=== PATIENT | male | born 1960 | race Caucasian/White ===

== ENCOUNTER → 2021-02-21 | Outpatient (CLI) | payer OTHER ==
--- NOTE | 2021-02-21 09:43 | MR ---
MRI CERVICAL SPINE: CLINICAL HISTORY: Neck pain into left upper extremity. Other cervical disc displacement. TECHNIQUE: Multiplanar, multisequence imaging of the cervical spine is performed without IV contrast. COMPARISON: None. FINDINGS: Sagittal images of the cervical spine show the craniocervical junction to appear within nor mal limits. The cervical and upper thoracic spinal cord is normal in course, caliber, and signal. Sl ight grade 1 retrolisthesis C5 on C6. The vertebral body heights are normal. Mild disc space narrowi ng C3-C4 and C5-C6 levels. Moderate disc space narrowing C6-C7 level. Jhfr-tb-[id number] multilevel ant erior spurring greatest at C5-C6 and C6-C7 levels. The bone marrow signal intensity is within normal limits. Axial images show C2-C3 level to appear within normal limits. Axial images at C3-C4 level showed broad based posterior disc protrusion with uncovertebral facet deg enerative changes, there is effacement of the anterior thecal sac, there is severe left-sided neural foraminal narrowing, there is mild to moderate right-sided neural foraminal narrowing. Axial images at C4-C5 level showed broad based posterior disc protrusion effacing anterior thecal sac and causing mild to moderate bilateral neural foraminal narrowing as there are uncovertebral facet d egenerative changes bilaterally also present. Axial images at the C5-C6 level showed broad based right paracentral disc protrusion and uncovertebra l facet degenerative changes bilaterally, there is moderate left and mild right-sided neural foramina l narrowing. Axial images at C6-C7 level show broad-based right paracentral disc protrusion effacing anterior thec al sac, there is mild left and moderate right-sided neural foraminal narrowing. Axial images at C7-T1 level appear within normal limits. There is heterogeneity in the thyroid, small right-sided thyroid nodules suspected axial image 21. Co nsider thyroid ultrasound follow-up to further evaluate. IMPRESSION: Multilevel degenerative changes in the cervical spine as detailed above.
== END | disposition home or self-care (01) ==
LOC: RADMRIMAIN 07:23
PROVIDERS: ATTEND Family Medicine Addiction Medicine
DX: M50.223 Other cervical disc displacement at C6-C7 level (principal); M50.323 Other cervical disc degeneration at C6-C7 level; M47.812 Spondylosis without myelopathy or radiculopathy, cervical region; M43.12 Spondylolisthesis, cervical region; M99.71 Connective tissue and disc stenosis of intervertebral foramina of cervical region
CPT/HCPCS: 72141

== ENCOUNTER → 2021-05-29 | Outpatient (CLI) | payer OTHER ==
[2021-05-29 15:01] LABS: Basophils # (A) 0.05 X 10*3/uL (0.00-0.10); Basophils % (A) 0.6 %; Eosinophils # (A) 0.57 X 10*3/uL (0.04-0.35); HCT 49.6 % (39.6-50.0); HGB 15.2 g/dL (13.0-17.0); Immature Grans, Automated 0.2 %; Lymphocytes # (A) 2.35 X 10*3/uL (0.90-5.00); Lymphocytes % (A) 28.8 %; MCH 27.1 pg (27.0-32.0); MCHC 30.6 g/dL (32.0-37.0); MCV 88.4 fL (80.0-97.0); Mean Platelet Volume 9.9 fL (9.5-12.2); Monocytes # (A) 0.76 X 10*3/uL (0.20-1.00); Monocytes % (A) 9.3 %; NRBC Per 100 WBC 0 /100 WBCS (0.0-0.0); Neutrophils # (A) 4.41 X 10*3/uL (1.80-7.70); Neutrophils % (A) 54.1 %; Platelet Count 243 X 10*3/uL (140-440); RBC 5.61 X 10*6/uL (4.40-5.60); RDW 13.8 % (11.5-14.5); WBC 8.16 X 10*3/uL (4.50-10.00)
[2021-05-29 15:25] LABS: ALT 23 U/L (10-49); AST 28 U/L (14-35); Albumin 4.4 g/dL (3.8-4.9); Alkaline Phosphatase 131 U/L (41-126); BUN/Creat Ratio 20.33 Ratio (12.00-20.00); Calcium 9.4 mg/dL (8.7-10.3); Chloride 105 mmol/L (96-109); Chol/HDL Ratio 3.76 Ratio; Globulin 2.6 g/dL (1.6-3.3); Glucose 96 mg/dL (70-110); LDL Cholesterol,Calculated 103.9 mg/dL (0.0-131.0); Potassium 5.4 mmol/L (3.5-5.5); Sodium 144 mmol/L (135-145); Total Protein 7.1 g/dL (6.2-8.2); VLDL Calculation 15.82 mg/dL (5.00-40.00)
[2021-05-29 16:36] LABS: Appearance,Urine Clear (Clear); Bilirubin,Urine Negative (Negative); Blood,Urine Negative (Negative); Color,Urine Dark Yellow (Yellow); Ketones,Urine Negative (Negative); Leukocyte Esterase,Urine Negative (Negative); Nitrite,Urine Negative (Negative); Protein,Urine Negative (Negative); Specific Gravity,Urine 1.026 (1.001-1.030)
== END | disposition home or self-care (01) ==
LOC: LABWHC1 08:57
PROVIDERS: ATTEND Internal Medicine
DX: Z00.00 Encounter for general adult medical examination without abnormal findings (principal)
CPT/HCPCS: 36415; 80053; 80061; 81003; 84153; 85025

== ENCOUNTER → 2023-01-14 | Outpatient (CLI) | payer OTHER ==
--- NOTE | 2023-01-14 12:27 | XR ---
EXAMINATION TYPE: XR cervical spine comp DATE OF EXAM: 01/14/2023 11:36 AM CLINICAL INDICATION:Male, 62 years old with history of M48.061,M51.25 SPINE, LUMBAR...ATTN: C3-4,C4-5 ,C5-6; [facility] COMPARISON: 02/21/2021 MRI TECHNIQUE: The cervical spine was imaged in frontal, lateral, odontoid and bilateral oblique. FINDINGS: The osseous structures show normal alignment without evidence of an acute fracture. There are osteoph ytes noted throughout the cervical spine on the anterior and lateral aspects of the vertebral bodies. The intervertebral disk spaces are narrowed at multiple levels. Pedicles are intact. Soft tissues a re within normal limits. The odontoid appears intact. Moderate neural femoral stenosis bilateral C6-C 7 IMPRESSION: 1. No fracture or dislocation. 2. Mild degenerative disc disease changes of the cervical spine. Neural femoral stenosis worse at C6- C7.
== END | disposition home or self-care (01) ==
LOC: RADXRMAIN 11:19
PROVIDERS: ATTEND Family Medicine Addiction Medicine
DX: M48.061 Spinal stenosis, lumbar region without neurogenic claudication (principal); M51.25 Other intervertebral disc displacement, thoracolumbar region; M99.71 Connective tissue and disc stenosis of intervertebral foramina of cervical region; M50.30 Other cervical disc degeneration, unspecified cervical region
CPT/HCPCS: 72050

== ENCOUNTER 2024-03-27 12:36 | Observation (INO) | payer MEDICARE, OTHER ==
--- NOTE | 2024-03-27 12:57 | ED ---
Chest Pain HPI - General Source: patient, RN notes reviewed Mode of arrival: wheelchair Limitations: no limitations - History of Present Illness MD Complaint: chest pain <Livia Bellamy - Last Filed: 03/27/24 12:56> <Evita Meehan - Last Filed: 03/28/24 18:00> - General Chief Complaint: Chest Pain Stated Complaint: Chest pain, SOB, cough Time Seen by Provider: 03/27/24 12:55 - History of Present Illness Initial Comments: Quick Note: This is a 63-year-old male who presents to the emergency department for chest pain and shortness of breath. States that it started 6 days ago. He did have a productive cough initially that seems to have gotten better. Denies any history of heart attacks or stents. (Livia Bellamy) Patient is a 63-year-old male with a 12-coij-eywl smoking history presenting today for shortness of breath since [place] eve. States that his primary care provider started him on outpatient azithromycin which she has been taking without improvement of his symptoms. Endorses a cough productive of thick sputum but no hemoptysis. States he has an inhaler at home that has not been helping his symptoms. Has not recently been placed on steroids. Denies fevers but endorses chills. Denies diagnosed history of COPD. He denies chest pain to me. Denies nausea, vomiting or diaphoresis. Denies abdominal pain or lower extremity swelling. No history of cancer or prior DVT/PE. No recent travel surgery or hospitalizations. No history of CAD. (Evita Meehan) - Related Data Home Medications Medication Instructions Recorded Confirmed DULoxetine HCL [Cymbalta] 30 mg PO DAILY 03/27/24 03/27/24 HYDROcodone/APAP 10-325MG [[place] 1 tab PO BID 03/27/24 03/27/24 10-325] Naproxen [Naprosyn] 500 mg PO DAILY 03/27/24 03/27/24 clonazePAM [KlonoPIN] 0.5 mg PO TID 03/27/24 03/27/24 Allergies Allergy/AdvReac Type Severity Reaction Status Date / Time ibuprofen [From Motrin] AdvReac Nausea & Verified 03/27/24 16:50 Vomiting Review of Systems ROS Other: All systems not noted in ROS Statement are negative. <Livia Bellamy - Last Filed: 03/27/24 12:56> ROS Other: All systems not noted in ROS Statement are negative. <Evita Meehan - Last Filed: 03/28/24 18:00> ROS Statement: Those systems with pertinent positive or pertinent negative responses have been documented in the HPI. EKG Findings - EKG Comments: EKG Findings:: Sinus tachycardia, rate 100 bpm, UT interval 144 ms QRS duration 93 ms QT/QTc 345/402 ms, normal axis, no ST elevations or depressions, no prior for comparison <Evita Meehan - Last Filed: 03/28/24 18:00> Past Medical History Additional Past Medical History / Comment(s): anxiety, depression, chronic pain (neck and back) Past Surgical History: Appendectomy Additional Past Surgical History / Comment(s): right hand, right shoulder Past Psychological History: Anxiety, Depression Smoking Status: Current every day smoker Past Alcohol Use History: Daily Past Drug Use History: None Reported <Livia Bellamy - Last Filed: 03/27/24 12:56> General Exam Limitations: no limitations <Livia Bellamy - Last Filed: 03/27/24 12:56> <Evita Meehan - Last Filed: 03/28/24 18:00> - General Exam Comments Initial Comments: Visual Physical Exam Vital signs reviewed General: Well-appearing, nontoxic, no acute distress. Head: Normocephalic, atraumatic Eyes: PERRLA, EOMI ENT: Airway patent Chest: Nonlabored breathing Skin: No visual rash, normal skin tone Neuro: Alert and oriented 3 Musculoskeletal: No gross abnormalities (Livia Bellamy) PE: Initial exam was performed in triage recliner due to ED at surge capacity CONSTITUTIONAL: No apparent distress, ill-appearing, nontoxic SKIN: Warm, dry, no jaundice, hives or petechiae EYES: Pupils are equally round, extraocular movements intact without nystagmus, clear conjunctiva, non-icteric sclera HENT: Normocephalic, atraumatic, moist mucus membranes, oropharynx clear without exudates NECK: , Full range of motion, normal appearance PULMONARY: Decreased breath sounds and air movement throughout, scant wheezes in the lung bases and apices, normal excursion, no accessory muscle use or stridor, no rales or crackles CARDIOVASCULAR: Regular rate, rhythm, normal S1 and S2. No appreciated murmurs, rubs or gallops. Strong radial pulses with intact distal perfusion. No lower extremity edema GASTROINTESTINAL: Soft, active bowel sounds throughout, non-tender, non- distended, no palpable masses, no rebound or guarding. No hepatosplenomegaly MUSCULOSKELETAL: Extremities have no gross deformity, no edema, redness, or swelling. No calf swelling NEUROLOGIC:_a/o x 3, GCS 15, normal mentation and speech. Moves all extremities x 4 without motor or sensory deficit PSYCHIATRIC:_normal mood and affect, thought process is clear and linear (Evita Meehan) Course Vital Signs 03/27/24 03/27/24 03/27/24 12:54 19:46 21:03 Temperature 98.1 F Pulse Rate 100 80 Respiratory 16 20 19 Rate Blood Pressure 121/76 127/91 O2 Sat by Pulse 93 L 92 L Oximetry 03/27/24 03/27/24 03/27/24 21:14 21:49 23:55 Temperature Pulse Rate 98 101 H 83 Respiratory 17 Rate Blood Pressure 115/60 O2 Sat by Pulse 92 L Oximetry 03/28/24 03/28/24 02:24 02:36 Temperature 98.7 F 98.7 F Pulse Rate 77 77 Respiratory 17 17 Rate Blood Pressure 132/86 132/86 O2 Sat by Pulse 96 96 Oximetry Chest Pain MDM <Livia Bellamy - Last Filed: 03/27/24 12:56> <Evita Meehan - Last Filed: 03/28/24 18:00> - MDM I performed the QuickNote portion of this chart. Signed Livia Bellamy PA-C. (Livia Bellamy) Was pt. sent in by a medical professional or institution (ANNEMARIE Marinelli, PUBLIC RELATIONS COORDINATOR, urgent care, hospital, or alf...) When possible be specific @ -Patient reports that he was directed to come into the ER by his primary care provider Did you speak to anyone other than the patient for history (EMS, parent, family, police, friend...)? What history was obtained from this source @ -No Did you review nursing and triage notes (agree or disagree)? Why? @ -I reviewed nursing and triage notes-of note patient denies chest pain to myself Were old charts reviewed (outside hosp., previous admission, EMS record, old EKG, old radiological studies, urgent care reports/EKG's, alf records)? Report findings @Medical records reviewed Differential Diagnosis (chest pain, altered mental status, abdominal pain women, abdominal pain men, vaginal bleeding, weakness, fever, dyspnea, syncope, headache, dizziness, GI bleed, back pain, seizure, CVA, palpatations, mental health, musculoskeletal)? Differential Dyspnea: Coronary syndrome, arrhythmia, tamponade, asthma, COPD, pulmonary embolism, pneumonia, pneumothorax, pulmonary effusion, anaphylaxis, diabetic ketoacidosis, flailed chest, pulmonary contusion, diaphragmatic rupture, anemia, neuromuscular, this is not meant to be an all-inclusive list. EKG interpreted by me (3pts min.). @ -As above X-rays interpreted by me (1pt min.). @No cardiomegaly, consolidations or pleural effusions CT interpreted by me (1pt min.). @No evidence of pulmonary embolism U/S interpreted by me (1pt. min.). @ -None done What testing was considered but not performed or refused? (CT, X-rays, U/S, labs)? Why? @ -None What meds were considered but not given or refused? Why? @ -None Did you discuss the management of the patient with other professionals (professionals i.e. , PA, PUBLIC RELATIONS COORDINATOR, lab, RT, psych nurse, social sciences instructor, radio/tv technician, teacher, senior credit officer, case management specialist)? Give summary @ -No Was smoking cessation discussed for >3mins.? @ -No Was critical care preformed (if so, how long)? @Yes, 35 minutes Were there social determinants of health that impacted care today? How? (Homelessness, low income, unemployed, alcoholism, drug addiction, transportation, low edu. Level, literacy, decrease access to med. care, shelter, rehab)? @ -No Was there de-escalation of care discussed even if they declined (Discuss DNR or withdrawal of care, Hospice)? @ -No What co-morbidities impacted this encounter? (DM, HTN, Smoking, COPD, CAD, Cancer, CVA, ARF, Chemo, Hep., AIDS, mental health diagnosis, sleep apnea, morbid obesity)? @[id number] smoking, suspect undiagnosed COPD Was patient admitted / discharged? Hospital course, mention meds given and ro abdoulaye, prescriptions, significant lab abnormalities, going to OR and other pertinent info. @ -Admission-patient initially seen and assessed by triage MANUEL and a rapid assessment and orders were placed based on this by triage MANUEL. Patient seen and assessed by myself in recliner of triage due to ER at max surge capacity. In no acute distress on my assessment. I placed patient on pulse oximeter during our conversation and pulse ox remained in low 90s throughout conversation. The majority of patient's labs were returned at this point and showed a D-dimer of 1.00. Patient does have decreased aeration and breath sounds with scant wheezes throughout his lungs consistent with COPD exacerbation however due to elevated D-dimer a CT PE study was ordered. I discussed with the patient plan for CT varun dy, ordered [id number] high-dose nebulizer treatments, steroids Rocephin and azithromycin. Patient agreeable plan of care. CT read by radiologist as mild emphysematous changes. Of note patient initially refused COVID swab because he does not believe in COVID-19 however I discussed with him the importance of monitoring for COVID so as to protect his caregivers. Patient ultimately agreeable. Unfortunately, due to no beds available in the ED for an extended period patient's nebulizer treatments were delayed. On reassessment after receiving nebulizer treatments patient's breath sounds are somewhat improved with moderate improvement of aeration bilaterally though he does have significant wheezing bilaterally, plan for admission for COPD exacerbation. Patient agreeable plan of care. Case was discussed with Dr. Coats who kindly accepted patient for admission. Undiagnosed new problem with uncertain prognosis? @ -No Drug Therapy requiring intensive monitoring for toxicity (Heparin, Nitro, Insulin, Cardizem)? @ -No Were any procedures done? @ -No Diagnosis/symptom? @COPD exacerbation Acute, or Chronic, or Acute on Chronic? Acute Uncomplicated (without systemic symptoms) or Complicated (systemic symptoms)? @Complicated Side effects of treatment? @ -No Exacerbation, Progression, or Severe Exacerbation? @Exacerbation Poses a threat to life or bodily function? How? (Chest pain, [place], [place], pneumonia, PE, COPD, DKA, ARF, appy, cholecystitis, CVA, Diverticulitis, Homicidal, Suicidal, threat to staff... and all critical care pts) @ -Yes, if allowed to progress and continue without treatment could lead to acute respiratory failure (Evita Meehan) Disposition <Livia Bellamy - Last Filed: 03/27/24 12:56> <Evita Meehan - Last Filed: 03/28/24 18:00> Clinical Impression: COPD exacerbation Disposition: ADMITTED IP TO THIS HOSP Condition: Good
[2024-03-27 14:15] LABS: RBC 6.01 m/uL (4.30-5.90)
[2024-03-27 14:16] LABS: Basophils # (A) 0.1 k/uL (0-0.2); Basophils % (A) 1 %; Eosinophils # (A) 0.1 k/uL (0-0.7); Eosinophils % (A) 1 %; HCT 51.2 % (39.0-53.0); HGB 16.6 gm/dL (13.0-17.5); Lymphocytes % (A) 40 %; MCH 27.7 pg (25.0-35.0); MCHC 32.5 g/dL (31.0-37.0); MCV 85.2 fL (80.0-100.0); Mean Platelet Volume 6.8; Monocytes # (A) 0.6 k/uL (0-1.0); Monocytes % (A) 12 %; Neutrophils % (A) 41 %; Platelet Count 181 k/uL (150-450); RDW 12.9 % (11.5-15.5)
[2024-03-27 14:28] LABS: ALT 25 U/L (4-49); AST 33 U/L (17-59); African American GFR (CKD) >90 (>60 ml/min/1.73 sqM); Albumin 4.1 g/dL (3.5-5.0); Alkaline Phosphatase 86 U/L (38-126); Anion Gap 7 mmol/L; Blood Urea Nitrogen 24 mg/dL (9-20); Calcium 9.2 mg/dL (8.4-10.2); Carbon Dioxide 31 mmol/L (22-30); Chloride 102 mmol/L (98-107); Glucose 117 mg/dL (74-99); Magnesium 1.9 mg/dL (1.6-2.3); Non-African American GFR(CKD) >90 (>60 ml/min/1.73 sqM); Potassium 4.6 mmol/L (3.5-5.1); Sodium 140 mmol/L (137-145); Total Bilirubin 0.4 mg/dL (0.2-1.3); Total Protein 6.9 g/dL (6.3-8.2)
[2024-03-27 14:32] LABS: Partial Thromboplastin Time 23.4 sec (22.0-30.0); Prothrombin Time 10.7 sec (10.0-12.5)
--- NOTE | 2024-03-27 15:37 | XR ---
EXAMINATION TYPE: XR chest 2V DATE OF EXAM: 03/27/2024 3:19 PM COMPARISON: None. CLINICAL INDICATION: Male, 63 years old with history of Chest Pain, TECHNIQUE: XR chest 2V view(s) obtained. FINDINGS: The heart size is normal. The pulmonary vasculature is normal. The lungs are clear. Hyperinflation and flattening of the diaphragms compatible with COPD. IMPRESSION: 1. No acute pulmonary process. 2. COPD [facility], , 03/27/2024 3:34 PM
--- NOTE | 2024-03-27 20:25 | CT ---
EXAMINATION TYPE: CT chest angio for PE DATE OF EXAM: 03/27/2024 7:30 PM COMPARISON: None. CLINICAL INDICATION: Male, 63 years old with history of elevated dimer, YOVANY, YOVANY, chest pain, and taryn vated d-dimer. TECHNIQUE: CT of the chest is performed on a spiral scan at 2 mm thick sections. Study is performed with intravenous contrast timed for evaluation for pulmonary embolism. This will limit additional po rtions of the evaluation. 3-D MIP images reconstructed by the technologist are reviewed on the compu ter in the coronal and sagittal planes. Contrast used:100cc mL of Isovue 370 with IV Contrast, (none if empty) Oral contrast used: (none if empty) CT DLP: 467 mGycm, Automated exposure control for dose reduction was used. FINDINGS: No persistent filling defects to suggest acute pulmonary embolism. No mediastinal or hilar adenopathy enlarged by CT criteria is evident. The ascending aorta diameter at the level of the main pulmonary artery is 3.3 cm. The main pulmonary artery diameter at the bifurcation is 2.6 cm. Lung windows are clear. Mild emphysematous changes appear to be present Limited CT sections were through the upper abdomen. Upper abdomen appears unremarkable. IMPRESSION: 1. No acute pulmonary embolism. 2. Mild emphysematous changes [facility], , 03/27/2024 8:22 PM
[2024-03-27] MEDS: methylPREDNISolone SOD SUCCI 125 MG/2 ML VIAL IV STA (20:34)
[2024-03-27] MEDS: IPRATROPIUM 0.5 MG/2.5 ML NEBU INHALATION STA (21:14)
[2024-03-27] MEDS: ALBUTEROL NEBULIZED 2.5 MG/3 ML INHALATION SCH (21:14)
[2024-03-27] MEDS: AZITHROMYCIN 500 MG in SODIUM CHLORIDE 0.9% 250 ML IVPB STA (21:45)
[2024-03-27] MEDS: IPRATROPIUM 0.5 MG/2.5 ML NEBU INHALATION ONE (21:49)
[2024-03-27] MEDS ORDERED: NALOXONE 0.4 MG/ML 1 ML VIAL IVP PRN (23:10)
[2024-03-27] MEDS ORDERED: ACETAMINOPHEN TAB 325 MG TAB PO PRN (23:10)
[2024-03-27] MEDS: NICOTINE 21MG/24HR PATCH TRANSDERM SCH (23:56)
--- NOTE | 2024-03-28 02:22 | P.HPIM ---
History of Present Illness H&P Date: 03/28/24 Patient is a 63-year-old male with PMH of anxiety and depression who presents to the emergency room with complaints of shortness of breath and chest discomfort. The patient reports that over the past 4 to 5 days, he has been experiencing a mildly productive cough and has also been experiencing some intermittent diffuse chest discomfort. The patient saw his PCP who advised the patient to go to the emergency room. Patient notes that his breathing is somewhat improved at the time of interview but denied any additional complaints. He denied experiencing nausea, vomiting, diaphoresis, or dizziness. Reports that his chest discomfort is 5 out of 10 at maximal intensity with no alleviating or assessment features. In the emergency room, chest CTA revealed mild emphysematous changes but otherw ise unremarkable. EKG revealed sinus tachycardia at [address]/T wave changes noted as reviewed by me. Laboratory evaluation was remarkable for CO2 31, BUN 24, troponin 0.013, with influenza type a positive. The patient had an SpO2 of 92% in the emergency room on room air. ED documentation reviewed and case discussed with ED provider. Review of systems: Pertinent positives and negatives as discussed in HPI, a complete review of systems was performed and all other systems are negative. Physical examination: Vital signs reviewed General: non toxic, no distress, appears at stated age, obese Derm: no unusual rashes/lesions, warm Head: atraumatic, normocephalic, symmetric Eyes: EOMI, no lid lag, anicteric sclera, pupils equal round reactive to light ENT: Nose and ears atraumatic Neck: No cervical lymphadenopathy, trachea midline, supple Mouth: no lip lesion, mucus membranes moist Cardiovascular: S1S2 reg, no murmur, positive dorsalis pedis pulse bilateral, no edema Lungs: Somewhat poor air entry bilaterally without rales or rhonchi, no accessory muscle use Abdominal: soft, nontender to palpation, no guarding Ext: muscle strength 5 out of 5 in all 4 extremities grossly, no gross muscle atrophy, no contractures, Neuro: CN II-XI grossly intact, no gross focal neuro deficits Psych: Alert, oriented, appropriate affect Assessment: Acute hypoxic respiratory failure, likely multifactorial secondary to influenza infection and COPD exacerbation Chest pain, r/o ACS Mild hyperglycemia Elevated BUN Elevated bicarb, likely compensatory from chronic hypercapnia in setting of COPD undiagnosed Imaging: In the emergency room, chest CTA revealed mild emphysematous changes but otherwise unremarkable. EKG revealed sinus tachycardia at [address]/T wave changes noted as reviewed by me. Data Review: Laboratory evaluation was remarkable for CO2 31, BUN 24, troponin 0.013, with influenza type a positive. The patient had an SpO2 of 92% in the emergency room on room air. Plan: Start Tamiflu 75 mg p.o. twice daily Continue with azithromycin for now Continue with prednisone 40 mg p.o. daily Pulmonary consulted Continue DuoNebs [id number] and as needed Cardiac monitoring Trend troponin DVT prophylaxis: Lovenox subcu The patient is admitted with an anticipated fewer than 2 midnight stay for evaluation of COPD exacerbation CODE STATUS: Full Code Discussed with: Patient Anticipated discharge place: Home Past Medical History Additional Past Medical History / Comment(s): anxiety, depression, chronic pain (neck and back) Past Surgical History: Appendectomy Additional Past Surgical History / Comment(s): right hand, right shoulder Past Psychological History: Anxiety, Depression Smoking Status: Current every day smoker Past Alcohol Use History: Daily Past Drug Use History: None Reported Medications and Allergies Home Medications Medication Instructions Recorded Confirmed Type DULoxetine HCL [Cymbalta] 30 mg PO DAILY 03/27/24 03/27/24 History HYDROcodone/APAP 10-325MG [[place] 1 tab PO BID 03/27/24 03/27/24 History 10-325] Naproxen [Naprosyn] 500 mg PO DAILY 03/27/24 03/27/24 History clonazePAM [KlonoPIN] 0.5 mg PO TID 03/27/24 03/27/24 History Allergies Allergy/AdvReac Type Severity Reaction Status Date / Time ibuprofen [From Motrin] AdvReac Nausea & Verified 03/27/24 16:50 Vomiting Physical Exam Vitals: Vital Signs Temp Pulse Resp BP Pulse Ox 03/27/24 23:55 83 17 115/60 92 L 03/27/24 21:49 101 H 03/27/24 21:14 98 03/27/24 21:03 80 19 127/91 92 L 03/27/24 19:46 20 03/27/24 12:54 98.1 F 100 16 121/76 93 L Intake and Output 03/27/24 03/27/24 03/28/24 14:59 22:59 06:59 Output Total 500 Balance -500 Output: Urine 500 Other: # Voids 2 Weight 97.976 kg Results CBC & Chem 7: 03/27/24 14:06 03/27/24 14:06 Labs: Abnormal Lab Results - Last 24 Hours (Table) 03/27/24 03/27/24 03/27/24 Range/Units 14:06 14:06 14:06 RBC 6.01 H (4.30-5.90) m/uL D-Dimer 1.00 H (<0.60) mg/L FEU Carbon Dioxide 31 H (22-30) mmol/L BUN 24 H (9-20) mg/dL Glucose 117 H (74-99) mg/dL Influenza Type A (PCR) (Not Detectd) 03/27/24 Range/Units 19:45 RBC (4.30-5.90) m/uL D-Dimer (<0.60) mg/L FEU Carbon Dioxide (22-30) mmol/L BUN (9-20) mg/dL Glucose (74-99) mg/dL Influenza Type A (PCR) Detected A (Not Detectd)
[2024-03-28] MEDS: OSELTAMIVIR 75 MG CAP PO SCH (03:21)
[2024-03-28] MEDS: HYDROcodone/APAP 5-325MG 1 EACH TAB PO PRN (03:23)
[2024-03-28] MEDS: IPRATROPIUM-ALBUTEROL 3 ML NEB INHALATION SCH (09:12)
[2024-03-28] MEDS: ENOXAPARIN 40 MG/0.4 ML SYRINGE SQ SCH (09:29)
[2024-03-28] MEDS: predniSONE 20 MG TAB PO SCH (09:29)
[2024-03-28] MEDS: AZITHROMYCIN 500 MG TAB PO SCH (12:22)
[2024-03-28] MEDS: DULoxetine HCL 30 MG CAPSULE.DR PO SCH (13:43)
[2024-03-28] MEDS: HYDROcodone/APAP 10-325MG 1 EACH TAB PO SCH (13:43)
--- NOTE | 2024-03-28 14:57 | P.CNPUL ---
History of Present Illness Consult date: 03/28/24 Requesting physician: Paulette Coats Reason for consult: dyspnea, COPD Chief complaint: Shortness of breath, cough, congestion History of present illness: This is a 63-year-old male patient with a known history of chronic back and neck pain, anxiety/depression, chronic and ongoing tobacco dependence of greater than 50 years. 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 He presented here to the emergency room yesterday complaints of increasing shortness of breath cough congestion and chest tightness. Chest x-ray revealed no acute pulmonary process. Evidence of COPD. CT angiogram ruled out pulmonary embolism. Mild and for somatic changes noted. White count 5.0. Hemoglobin 6.6. Platelets 181. INR 1.0. D-dimer 1.00. Sodium 140. Potassium 4.6. Bicarb 31. BUN 24. Creatinine 0.71. Glucose 117. Troponins negative x 2. Viral screen positive for influenza A. He is seen today in consultation on the regular medical floor. He is currently sitting up in a chair having a breathing treatment. Awake and alert in no acute distress. He does have a loose congested cough. No fever or chills. He is afebrile. Hemodynamically stable. Review of Systems REVIEW OF SYSTEMS: CONSTITUTIONAL: Denies any recent significant weight loss or weight gain. EYES: Denies change in vision. EARS, NOSE, MOUTH, THROAT: Denies headaches, denies sore throat. CARDIOVASCULAR: Denies chest pain, palpitations or syncopal episodes. RESPIRATORY: Positive for shortness of breath, cough, congestion no hemoptysis. GASTROINTESTINAL: Denies change in appetite, denies abdominal pain GENITOURINARY: Denies hematuria, denies infections. MUSKULOSKELETAL: Denies pain, denies swelling. INTEGUMENTARY: Denies rash, denies eczema. NEUROLOGICAL: Denies recent memory loss, no recent seizure activity. PSYCHIATRIC: Denies anxiety, denies depression. HEMATOLOGIC/LYMPHATIC: Denies anemia, denies enlarged lymph nodes. Past Medical History Past Medical History: COPD Additional Past Medical History / Comment(s): anxiety, depression, chronic pain (neck and back) History of Any Multi-Drug Resistant Organisms: None Reported Past Surgical History: Appendectomy Additional Past Surgical History / Comment(s): right hand, right shoulder. Past Psychological History: Anxiety, Depression Smoking Status: Current every day smoker Past Alcohol Use History: Daily Past Drug Use History: None Reported Medications and Allergies Home Medications Medication Instructions Recorded Confirmed Type DULoxetine HCL [Cymbalta] 30 mg PO DAILY 03/27/24 03/27/24 History HYDROcodone/APAP 10-325MG [[place] 1 tab PO BID 03/27/24 03/27/24 History 10-325] Naproxen [Naprosyn] 500 mg PO DAILY 03/27/24 03/27/24 History clonazePAM [KlonoPIN] 0.5 mg PO TID 03/27/24 03/27/24 History Allergies Allergy/AdvReac Type Severity Reaction Status Date / Time ibuprofen [From Motrin] AdvReac Nausea & Verified 03/27/24 16:50 Vomiting Physical Exam Vitals: Vital Signs Temp Pulse Pulse Resp BP BP Pulse Ox 03/28/24 12:21 98 03/28/24 12:03 100 03/28/24 09:32 96 19 03/28/24 09:25 98 03/28/24 09:12 100 97 03/28/24 07:43 97.5 F L 96 19 139/87 91 L 03/28/24 02:36 98.7 F 77 17 132/86 96 03/28/24 02:24 98.7 F 77 17 132/86 96 03/27/24 23:55 83 17 115/60 92 L 03/27/24 21:49 101 H 03/27/24 21:14 98 03/27/24 21:03 80 19 127/91 92 L 03/27/24 19:46 20 Intake and Output 03/27/24 03/28/24 03/28/24 22:59 06:59 14:59 Output Total 500 Balance -500 Output: Urine 500 Other: # Voids 1 Weight 97.976 kg GENERAL EXAM: Alert, disheveled 63-year-old male, on 2 L nasal cannula, up in a chair, comfortable in no apparent distress. HEAD: Normocephalic. EYES: Normal reaction of pupils, equal size. NOSE: Clear with pink turbinates. THROAT: No erythema or exudates. NECK: No masses, no JVD. CHEST: No chest wall deformity. LUNGS: Equal air entry with few scattered rhonchi, bilateral wheezing, diminished. CVS: S1 and S2 normal with no audible murmur, regular rhythm. ABDOMEN: No hepatosplenomegaly, normal bowel sounds, no guarding or rigidity. SPINE: No scoliosis or deformity SKIN: No rashes CENTRAL NERVOUS SYSTEM: No focal deficits, tone is normal in all 4 extremities. EXTREMITIES: There is no peripheral edema. No clubbing, no cyanosis. Peripheral pulses are intact. Results - Laboratory Findings CBC and BMP: 03/27/24 14:06 03/27/24 14:06 PT/INR, D-dimer PT 10.7 sec (10.0-12.5) 03/27/24 14:06 INR 1.0 (<1.2) 03/27/24 14:06 D-Dimer 1.00 mg/L FEU (<0.60) H 03/27/24 14:06 Abnormal lab findings: Abnormal Labs 03/27/24 03/27/24 03/27/24 14:06 14:06 14:06 RBC 6.01 H D-Dimer 1.00 H Carbon Dioxide 31 H BUN 24 H Glucose 117 H Influenza Type A (PCR) 03/27/24 19:45 RBC D-Dimer Carbon Dioxide BUN Glucose Influenza Type A (PCR) Detected A - Diagnostic Findings Chest x-ray: image reviewed CT scan - chest: image reviewed Assessment and Plan Assessment: Acute hypoxemic respiratory failure secondary to an acute exacerbation of suspected chronic obstructive pulmonary disease complicated by influenza A inf ection Influenza A Chronic and ongoing tobacco dependence of greater than 50 years Chronic back and neck pain History of anxiety/depression Plan: The patient was seen and evaluated Imaging, labs and medications reviewed Continue DuoNeb inhalations Continue Symbicort, prednisone Lovenox for DVT prophylaxis Educated regarding smoking cessation NicoDerm patch in place Complete a course of Tamiflu Titrate down the FiO2 as tolerated Increase his activity as tolerated We will continue to follow and make further recommendations based on his clinical status I have personally seen and examined the patient, performed the documentation and the assessment and plan as written. Dictation was produced using [employer] dictation software. Please excuse any grammatical, word or spelling errors. This patient was seen in coordination with the pulmonary/critical care physician, Dr. Bateman. He did spend greater than 50% of the time evaluating, examining and developing the plan of care. He agrees to the above HPI, physical exam, assessment and plan of care as dictated by the nurse practitioner.
[2024-03-28] MEDS: clonazePAM 0.5 MG TAB PO SCH (15:58)
[2024-03-28] MEDS: BENZONATATE 100 MG CAP PO PRN (16:57)
[2024-03-28 20:01] VITALS: TEMP 97.5
[2024-03-28] MEDS: SYMBICORT 160-4.5 MCG INHALER INHALATION SCH (21:32)
[2024-03-29 08:44] VITALS: BP 117/71; PULSE 97; RESP 20
[2024-03-29] MEDS: NAPROXEN 250 MG TAB PO SCH (08:50)
--- NOTE | 2024-03-29 10:07 | P.DS ---
Providers Date of admission: 03/27/24 23:14 Expected date of discharge: 03/29/24 Attending physician: Paulette Coats MD Consults: 03/27/24 23:10 Consult Physician Routine Consulting Provider: Conner Bateman Consult Reason/Comments: COPD exacerbation Do you want consulting provider notified?: Yes, Notify in am Primary care physician: [facility] Course: 63-year-old male with PMH of anxiety and depression who presents to the emergency room with complaints of shortness of breath and chest discomfort. In the emergency room, chest CTA revealed mild emphysematous changes but otherwise unremarkable. EKG revealed sinus tachycardia at [address]/T wave changes noted as reviewed by me. Laboratory evaluation was remarkable for CO2 31, BUN 24, troponin 0.013 (repeat 0.015), with influenza type a positive. The patient had an SpO2 of 92% in the emergency room on room air. Patient was admitted for further workup and management. Started on Tamiflu and bronchodila tors along with Prednisone. His breathing improved. 03/29 Patient was seen and examined. Reports improved breathing. He would like to go home. He passed his home O2 eval. Nebulizer at bedside. Discharge Plan: Prescription for Prednisone 40 mg PO QD x 3 days, Tessalon perles PRN, Azithromycin 500 mg PO x 1 day, DuoNeb solution, Symbicort inhaler, Tamiflu 75 mg PO BID x 3 days sent to his pharmacy. Pharmacy confirmed by RN to be open today. Follow up with PCP within 1-2 days of discharge. Vital signs reviewed General: non toxic, no distress, appears at stated age, obese Derm: no unusual rashes/lesions, warm Head: atraumatic, normocephalic, symmetric Eyes: EOMI, no lid lag, anicteric sclera ENT: Nose and ears atraumatic Neck: No cervical lymphadenopathy, trachea midline, supple Mouth: no lip lesion, mucus membranes moist Cardiovascular: S1S2 reg, no murmur Lungs: Decreased BS BL, no accessory muscle use Ext: muscle strength 5 out of 5 in all 4 extremities grossly, no gross muscle atrophy, no contractures, Neuro: no gross focal neuro deficits Psych: Alert, oriented, appropriate affect Discharge Diagnosis: Acute hypoxic respiratory failure, likely multifactorial secondary to influenza infection and COPD exacerbation Chest pain likely due to above, ACS ruled out Mild hyperglycemia Elevated BUN Elevated bicarb, likely compensatory from chronic hypercapnia in setting of COPD undiagnosed This complex discharge took 35 minutes to complete. Patient Condition at Discharge: Stable Plan - Discharge Summary Discharge Rx Participant: Yes New Discharge Prescriptions: New predniSONE [Deltasone] 40 mg PO DAILY #6 tab Benzonatate [Tessalon Perles] 100 mg PO TID PRN #30 cap PRN Reason: Cough Azithromycin [Zithromax] 500 mg PO DAILY #1 tab Ipratropium-Albuterol Nebulize [Duoneb 0.5 mg-3 mg/3 ml Soln] 3 ml INHALATION RT-QID PRN #120 each PRN Reason: Shortness Of Breath Or Wheezing Budesonide-Formot 160-4.5 Mcg [Symbicort 160-4.5 Mcg Inhaler] 2 puff INHALATION RT-BID #1 each Oseltamivir [Tamiflu] 75 mg PO Q12HR #6 cap Acetaminophen Tab [Tylenol] 650 mg PO Q4HR PRN tab PRN Reason: Mild Pain Or Fever > 100.5 Continue DULoxetine HCL [Cymbalta] 30 mg PO DAILY Naproxen [Naprosyn] 500 mg PO DAILY clonazePAM [KlonoPIN] 0.5 mg PO TID HYDROcodone/APAP 10-325MG [[place] 10-325] 1 tab PO BID Discharge Medication List DULoxetine HCL [Cymbalta] 30 mg PO DAILY 03/27/24 [History] HYDROcodone/APAP 10-325MG [[place] 10-325] 1 tab PO BID 03/27/24 [History] Naproxen [Naprosyn] 500 mg PO DAILY 03/27/24 [History] clonazePAM [KlonoPIN] 0.5 mg PO TID 03/27/24 [History] Acetaminophen Tab [Tylenol] 650 mg PO Q4HR PRN tab 03/29/24 [Rx] Azithromycin [Zithromax] 500 mg PO DAILY #1 tab 03/29/24 [Rx] Benzonatate [Tessalon Perles] 100 mg PO TID PRN #30 cap 03/29/24 [Rx] Budesonide-Formot 160-4.5 Mcg [Symbicort 160-4.5 Mcg Inhaler] 2 puff INHALATION RT-BID #1 each 03/29/24 [Rx] Ipratropium-Albuterol Nebulize [Duoneb 0.5 mg-3 mg/3 ml Soln] 3 ml INHALATION RT-QID PRN #120 each 03/29/24 [Rx] Oseltamivir [Tamiflu] 75 mg PO Q12HR #6 cap 03/29/24 [Rx] predniSONE [Deltasone] 40 mg PO DAILY #6 tab 03/29/24 [Rx] Follow up Appointment(s)/Referral(s): Ki Adams DO [Primary Care Provider] - 1-2 days [facility] [NON-STAFF] - As Needed (nebulizer) Patient Instructions/Handouts: Influenza (DC) Discharge Disposition: HOME SELF-CARE
--- NOTE | 2024-03-29 13:29 | P.PN ---
Subjective Progress Note Date: 03/29/24 This is a 63-year-old male patient with a known history of chronic back and neck pain, anxiety/depression, chronic and ongoing tobacco dependence of greater than 50 years. 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 He presented here to the emergency room yesterday complaints of increasing shortness of breath cough congestion and chest tightness. Chest x-ray revealed no acute pulmonary process. Evidence of COPD. CT angiogram ruled out pulmonary embolism. Mild and for somatic changes noted. White count 5.0. Hemoglobin 6.6. Platelets 181. INR 1.0. D-dimer 1.00. Sodium 140. Potassium 4.6. Bicarb 31. BUN 24. Creatinine 0.71. Glucose 117. Troponins negative x 2. Viral screen positive for influenza A. He is seen today in consultation on the regular medical floor. He is currently sitting up in a chair having a breathing treatment. Awake and alert in no acute distress. He does have a loose congested cough. No fever or chills. He is afebrile. Hemodynamically stable. The patient is seen today March 29, 2024 in follow-up on the regular medical floor. He is awake and alert in no acute distress. He has been up ambulating in the hallway. He is maintaining good O2 saturations in the 90s on room air. He is anxious to go home. He denies any worsening shortness of breath, cough or congestion. Calcitonin was negative at 0.04. He remains on Tamiflu for the influenza A. Continued on DuoNeb inhalations, Symbicort, prednisone taper. NicoDerm patch in place. Lovenox for DVT prophylaxis. Objective - Vital Signs Vital signs: Vital Signs Temp 97.5 F L 03/29/24 07:51 Pulse 70 03/29/24 08:28 Resp 20 03/29/24 07:51 BP 117/71 03/29/24 07:51 Pulse Ox 91 L 03/29/24 09:21 FiO2 Intake & Output 03/28/24 03/29/24 03/29/24 18:59 06:59 18:59 Weight 97.976 kg Other: Voiding Method Toilet # Voids 3 2 - Exam GENERAL EXAM: Alert, 63-year-old male, ambulating in the hallway, on room air, comfortable in no apparent distress. HEAD: Normocephalic. EYES: Normal reaction of pupils, equal size. NOSE: Clear with pink turbinates. THROAT: No erythema or exudates. NECK: No masses, no JVD. CHEST: No chest wall deformity. LUNGS: Equal air entry with few scattered rhonchi, bilateral wheezing, diminished. CVS: S1 and S2 normal with no audible murmur, regular rhythm. ABDOMEN: No hepatosplenomegaly, normal bowel sounds, no guarding or rigidity. SPINE: No scoliosis or deformity SKIN: No rashes CENTRAL NERVOUS SYSTEM: No focal deficits, tone is normal in all 4 extremities. EXTREMITIES: There is no peripheral edema. No clubbing, no cyanosis. Peripheral pulses are intact. - Labs CBC & Chem 7: 03/27/24 14:06 03/27/24 14:06 Assessment and Plan Assessment: Acute hypoxemic respiratory failure secondary to an acute exacerbation of radha pected chronic obstructive pulmonary disease complicated by influenza A infection Influenza A Chronic and ongoing tobacco dependence of greater than 50 years Chronic back and neck pain History of anxiety/depression Plan: The patient was seen and evaluated Labs and medications reviewed Cleared for discharge Continue DuoNeb inhalations Continue Symbicort, prednisone taper Educated regarding smoking cessation NicoDerm patch in place Complete a course of Tamiflu I have personally seen and examined the patient, performed the documentation and the assessment and plan as written. Time: 10 minutes. Dictation was produced using [employer] dictation software. Please excuse any grammatical, word or spelling errors. This patient was seen in coordination with the pulmonary/critical care physician , Dr. Bateman. He did spend greater than 50% of the time evaluating, examining and developing the plan of care. He agrees to the above HPI, physical exam, assessment and plan of care as dictated by the nurse practitioner.
== END 2024-03-29 11:01 | disposition home or self-care (01) ==
LOC: EC 12:36 → 4SSUR 23:14
PROVIDERS: ADMIT Internal Medicine; ATTEND Internal Medicine
DX: J10.1 Influenza due to other identified influenza virus with other respiratory manifestations (principal); J44.1 Chronic obstructive pulmonary disease with (acute) exacerbation; J96.01 Acute respiratory failure with hypoxia; R73.9 Hyperglycemia, unspecified; R79.89 Other specified abnormal findings of blood chemistry; F41.9 Anxiety disorder, unspecified; F32.A Depression, unspecified; G89.29 Other chronic pain; M54.2 Cervicalgia; M54.9 Dorsalgia, unspecified; F17.210 Nicotine dependence, cigarettes, uncomplicated; Z79.1 Long term (current) use of non-steroidal anti-inflammatories (NSAID); Z79.891 Long term (current) use of opiate analgesic; Z79.899 Other long term (current) drug therapy; Z88.6 Allergy status to analgesic agent
CPT/HCPCS: 96372 ×2; 96365; 96367; 96375; 99291; 36415; 94640 ×5; 94760; 93005; 85379; 80053; 83735; 84484; 85025; 85610; 85730; 84145; 87636; 71046; 71275; G0378 ×3; S4990 ×3; J0456; J1650 ×2; J0696; J7512 ×2; Q9967; J2919